=== PATIENT | female | born 1940 | race Caucasian/White ===

== ENCOUNTER → 2017-06-13 | Outpatient (CLI) | payer OTHER, MEDICAID ==
[~2017-06-13] MED LIST: ANXIETY; AZITHROMYCIN 2250 MG PO; CATAPRES-TTS 10.1 MG; CATAPRES0.1 MG; CLONIDINE0.1 PO; HYDROCODONE-AP1 EAC6 PO; LISINOPRIL-HCT1 EAC2; LISINOPRIL-HCT1 EAC2 PO; NORCO 5-325 TA1 EACH PO; NORCO 7.5-3251 EACH PO; PREDNISONE 20 M20 M1 PO; PRINIVIL20 MG PO; SLEEPING; SYNTHROID88 MCG PO; TRAMADOL 50 MG50 MG PO; VENTOLIN17 GM INH; VIBRAMYCIN 100100 MG
== END ==
LOC: M.MRI 06-06 13:23
DX: I67.82 Cerebral ischemia (principal); I70.8 Atherosclerosis of other arteries; H53.122 Transient visual loss, left eye

== ENCOUNTER 2018-08-21 15:24 | Emergency (ER) | payer OTHER, MEDICAID ==
[~2018-08-21] VITALS: Ht 160 cm; Wt 104.3 kg
[2018-08-21] MEDS ORDERED: AUGMENTIN400 MG/53 PO (15:57)
[2018-08-21] MEDS ORDERED: ZOLOFT50 MG PO (15:58)
[2018-08-21] MEDS ORDERED: LIPITOR40 MG PO (15:58)
[2018-08-21] MEDS ORDERED: IRON325 PO (15:58)
[2018-08-21] MEDS ORDERED: SYNTHROID200 MCG PO (15:59)
[2018-08-21] MEDS ORDERED: CLONIDINE0.1 PO (15:59)
[2018-08-21] MEDS ORDERED: HYDROXYZINE HCL25 M1 PO (16:00)
[2018-08-21 16:23] LABS: BE -3.1 mmol/L (-2 to +3); PCO2 37.7 mmHg (35.0-45.0); PO2 90.8 mmHg (75.0-100.0); pH 7.377 (7.340-7.450)
[2018-08-21 16:39] LABS: ABSOLUTE BASOPHILS 0.1 thou/uL (0.0-0.2); ABSOLUTE EOSINOPHILS 0.1 thou/uL (0.0-0.7); ABSOLUTE LYMPHOCYTES 2.7 thou/uL (0.8-5.3); ABSOLUTE MONOCYTES 0.4 thou/uL (0.0-1.2); ABSOLUTE NEUTROPHILS 4.6 thou/uL (1.6-8.1); BASOPHILS 1.3 %; EOSINOPHILS 1.4 %; HEMATOCRIT 33.3 % (37.0-47.0); LYMPHOCYTES 34.1 %; MCH 29.7 pg (26.0-34.0); MCHC 32.9 g/dL (28.0-37.0); MCV 90.1 fL (80.0-100.0); MONOCYTES 5.5 %; MPV 8.8 fl. (7.2-11.1); NUCLEATED RBCS 0 /100WBC; PLATELET COUNT* 185 thou/uL (150-400); POLYS 57.7 %; RBC 3.69 mil/uL (4.20-5.00); RDW-CV 14.2 % (10.5-14.5); WBC 7.9 thou/uL (4.0-11.0)
[2018-08-21 16:47] LABS: ANION GAP 12 mmol/L (7-16); BUN 23 mg/dL (7-18); CALCIUM 8.8 mg/dL (8.5-10.1); CHLORIDE 103 mmol/L (98-107); CO2 24 mmol/L (21-32); CREATININE 1.4 mg/dL (0.6-1.3); GLUCOSE 154 mg/dL (70-99); POTASSIUM 4.3 mmol/L (3.5-5.1); SODIUM 139 mmol/L (136-145)
[2018-08-21 16:49] LABS: INR 1.1
[2018-08-21 16:58] LABS: ALBUMIN 3.7 g/dL (3.4-5.0); ALKALINE PHOSPHATASE 97 U/L (46-116); MAGNESIUM 1.1 mg/dL (1.8-2.4); NT-PRO BRAIN NAT PEPTIDE 228 pg/mL (<300); SGOT 20 U/L (15-37); SGPT 20 U/L (30-65); TOTAL BILIRUBIN 0.3 mg/dL (<0.1-1.0); TOTAL PROTEIN 7.8 g/dL (6.4-8.2); TROPONIN-I LEVEL <0.06 ng/mL (<0.06)
[2018-08-21 17:35] LABS: URINE BILIRUBIN NEGATIVE (Negative); URINE BLOOD NEGATIVE (Negative); URINE CLARITY CLEAR; URINE COLOR YELLOW; URINE GLUCOSE-RANDOM NEGATIVE (Negative); URINE KETONES NEGATIVE (Negative); URINE LEUKOCYTES-REFLEX NEGATIVE (Negative); URINE NITRITE-REFLEX NEGATIVE (Negative); URINE PROTEIN NEGATIVE (Negative); URINE SPECIFIC GRAVITY <= 1.005 (1.005-1.030); URINE UROBILINOGEN 0.2 E.U./dl (0.2-1.0)
[2018-08-21 19:35] VITALS: BP 181/46
--- NOTE | 2018-08-24 14:28 | EKG ---
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
== END 2018-08-21 19:35 | disposition home or self-care (01) ==
LOC: M.ERS 15:24
PROVIDERS: Personal Emergency Response Attendant
DX: R06.00 Dyspnea, unspecified (principal); R06.02 Shortness of breath; R42 Dizziness and giddiness; Z88.6 Allergy status to analgesic agent; Z77.22 Contact with and (suspected) exposure to environmental tobacco smoke (acute) (chronic); I10 Essential (primary) hypertension; E03.9 Hypothyroidism, unspecified; Z86.73 Personal history of transient ischemic attack (TIA), and cerebral infarction without residual deficits

== ENCOUNTER 2019-12-05 16:42 | Emergency (ER) | payer OTHER, MEDICAID ==
[~2019-12-05] VITALS: Ht 157.5 cm; Wt 90.7 kg
[~2019-12-05 16:42] MED LIST changes: +AUGMENTIN400 MG/53 PO; +HYDROXYZINE HCL25 M1 PO; +IRON325 PO; +LIPITOR40 MG PO; +SYNTHROID200 MCG PO; +ZOLOFT50 MG PO
[2019-12-05 16:56] VITALS: BP 175/87
[2019-12-05] MEDS ORDERED: NORVASC 2.5 MG2.5 M1 PO (17:00)
[2019-12-05] MEDS ORDERED: GLIMEPIRIDE1 MG PO (17:00)
[2019-12-05] MEDS ORDERED: TRAMADOL 50 MG50 MG PO (17:00)
[2019-12-05] MEDS ORDERED: DESYREL150 MG PO (17:01)
[2019-12-05] MEDS ORDERED: TOPROL XL100 MG PO (17:01)
[2019-12-05] MEDS ORDERED: DOXAZOSIN MESYLA1 MG PO (17:01)
[2019-12-05] MEDS ORDERED: LORCET 5-325 M1 EACH PO (17:09)
[2019-12-05] MEDS ORDERED: CLINDAMYCIN HC300 MG PO (17:09)
== END 2019-12-05 17:07 | disposition home or self-care (01) ==
LOC: M.ERS 16:42
DX: L03.115 Cellulitis of right lower limb (principal); Z77.22 Contact with and (suspected) exposure to environmental tobacco smoke (acute) (chronic); I10 Essential (primary) hypertension; M06.9 Rheumatoid arthritis, unspecified; E78.00 Pure hypercholesterolemia, unspecified; E03.9 Hypothyroidism, unspecified; Z88.1 Allergy status to other antibiotic agents; Z88.6 Allergy status to analgesic agent; Z86.73 Personal history of transient ischemic attack (TIA), and cerebral infarction without residual deficits

== ENCOUNTER 2020-01-16 08:32 | Inpatient (IN) | payer OTHER, MEDICAID ==
[~2020-01-16] VITALS: Ht 157.5 cm; Wt 91.2 kg
[~2020-01-16 08:32] MED LIST changes: +AMARYL1 MG PO; +CLINDAMYCIN HC300 MG PO; +DOXAZOSIN MESYLA2 MG PO; +LEVOXYL112 MCG PO; +LORCET 5-325 M1 EACH PO; +NORVASC5 M1 PO; -SYNTHROID200 MCG PO; +TOPROL XL100 MG PO; +TRAZODONE HCL50 MG PO
[2020-01-16 08:42] VITALS: BP 151/66
[2020-01-16] MEDS ORDERED: CLONIDINE HCL0.1 MG PO (08:48)
[2020-01-16] MEDS ORDERED: LISINOPRIL-HCT1 EAC2 PO (08:49)
[2020-01-16] MEDS ORDERED: LAMOTRIGINE100 MG PO (08:49)
[2020-01-16] MEDS ORDERED: ALLOPURINOL 10100 M3 PO (08:49)
[2020-01-16] MEDS ORDERED: TYLENOL325 M1 PO (08:50)
[2020-01-16 09:10] LABS: HEMATOCRIT 28.1 % (37.0-47.0); HEMOGLOBIN 8.9 gm/dL (12.0-15.0); MCH 28.2 pg (26.0-34.0); MCHC 31.7 g/dL (28.0-37.0); MCV 89.1 fL (80.0-100.0); MPV 8.7 fl. (7.2-11.1); RBC 3.16 mil/uL (4.20-5.00); RDW-CV 14.7 % (10.5-14.5); WBC 5.6 thou/uL (4.0-11.0)
[2020-01-16 09:17] LABS: CALCIUM 7.5 mg/dL (8.5-10.1); CREATININE 1.9 mg/dL (0.6-1.3)
[2020-01-16 11:57] VITALS: BP 154/83
[2020-01-16 16:00] VITALS: BP 151/69
[2020-01-16 23:49] VITALS: BP 157/60
[2020-01-17 04:00] VITALS: BP 207/96
[2020-01-17 05:03] LABS: HEMATOCRIT 27.1 % (37.0-47.0); HEMOGLOBIN 8.7 gm/dL (12.0-15.0); MCH 28.5 pg (26.0-34.0); MCHC 32.2 g/dL (28.0-37.0); MCV 88.5 fL (80.0-100.0); RBC 3.06 mil/uL (4.20-5.00); RDW-CV 14.5 % (10.5-14.5); WBC 4.4 thou/uL (4.0-11.0)
[2020-01-17 05:32] LABS: CALCIUM 7.6 mg/dL (8.5-10.1); CREATININE 1.3 mg/dL (0.6-1.3); MAGNESIUM 1.2 mg/dL (1.8-2.4)
[2020-01-17 05:49] VITALS: BP 170/80
[2020-01-17 12:46] VITALS: BP 170/87
[2020-01-17 20:00] VITALS: BP 168/66
[2020-01-18] VITALS: BP 161/85
[2020-01-18 04:00] VITALS: BP 133/111
[2020-01-18 05:55] LABS: HEMATOCRIT 29.3 % (37.0-47.0); HEMOGLOBIN 9.4 gm/dL (12.0-15.0); MCH 28.3 pg (26.0-34.0); MCHC 32.1 g/dL (28.0-37.0); MCV 88.1 fL (80.0-100.0); MPV 8.6 fl. (7.2-11.1); RBC 3.32 mil/uL (4.20-5.00); RDW-CV 15.1 % (10.5-14.5); WBC 7.9 thou/uL (4.0-11.0)
[2020-01-18 06:07] LABS: ALBUMIN 3.2 g/dL (3.4-5.0); CALCIUM 8.2 mg/dL (8.5-10.1); CREATININE 1.4 mg/dL (0.6-1.3); TOTAL BILIRUBIN 0.2 mg/dL (<0.1-1.0); TOTAL PROTEIN 7.2 g/dL (6.4-8.2)
[2020-01-18 08:30] VITALS: BP 153/60
[2020-01-18 12:00] VITALS: BP 159/76
--- NOTE | 2020-01-18 14:24 | EKG ---
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
[2020-01-18 16:00] VITALS: BP 143/54
[2020-01-18 20:00] VITALS: BP 159/66
[2020-01-19] VITALS (7 sets, daily range): BP systolic 121–162; BP diastolic 49–88
[2020-01-19 02:06] LABS: HIV-1/HIV-2 ANTIBODY Non Reactive (Non Reactive)
[2020-01-19] MEDS ORDERED: PROAIR HFA8.5 GM INH (10:05)
[2020-01-19] MEDS ORDERED: DEXAMETHASONE1 MG PO (10:05)
[2020-01-19] MEDS ORDERED: LEVOFLOXACIN500 MG PO (11:29)
[2020-01-19 16:06] LABS: HEPATITIS B SURFACE AG Negative (Negative)
== END 2020-01-19 16:30 | disposition home health service (06) | DRG 177 ==
LOC: M.ERS 08:32 → M.ORTHSURG 10:39 → M.TBA-ER 10:39 → M.ORTHSURG 12:13
PROVIDERS: Emergency Medicine Emergency Medical Services; Internal Medicine; ADMIT Internal Medicine; ATTEND Internal Medicine
PROC: XW033E5 Introduction of Remdesivir Anti-infective into Peripheral Vein, Percutaneous Approach, New Technology Group 5 (ICD-10-PCS; principal; 2020-01-17)
DX: U07.1 COVID-19 (principal); J12.89 Other viral pneumonia; J96.01 Acute respiratory failure with hypoxia; D64.9 Anemia, unspecified; E11.65 Type 2 diabetes mellitus with hyperglycemia; E11.22 Type 2 diabetes mellitus with diabetic chronic kidney disease; E03.9 Hypothyroidism, unspecified; D69.6 Thrombocytopenia, unspecified; I12.9 Hypertensive chronic kidney disease with stage 1 through stage 4 chronic kidney disease, or unspecified chronic kidney disease; N18.9 Chronic kidney disease, unspecified; E78.00 Pure hypercholesterolemia, unspecified; M10.9 Gout, unspecified; M06.9 Rheumatoid arthritis, unspecified; Z20.828 Contact with and (suspected) exposure to other viral communicable diseases; Z79.899 Other long term (current) drug therapy; I69.398 Other sequelae of cerebral infarction; Z79.84 Long term (current) use of oral hypoglycemic drugs; Z88.1 Allergy status to other antibiotic agents; Z88.5 Allergy status to narcotic agent